=== PATIENT | male | born 1960 | race Caucasian/White ===

== ENCOUNTER → 2020-05-14 | Outpatient (CLI) | payer OTHER ==
[~2020-05-14] VITALS: Ht 187 cm; Wt 96.8 kg
[~2020-05-14] MED LIST: ASPI-999 PO; FINA5TAB6 PO; MULT-1136 PO; TMSL.4C PO; VITA1CAP PO; VITA400T7 PO
== END | disposition home or self-care (01) ==
LOC: PREOP 05:52
PROVIDERS: ATTEND Surgery
DX: Z01.818 Encounter for other preprocedural examination (principal)

== ENCOUNTER 2020-05-28 09:50 | Day surgery (SDC) | payer BC, OTHER ==
[~2020-05-28] VITALS: Ht 187 cm; Wt 96.8 kg
[2020-05-28] MEDS ORDERED: LACTATED RINGERS 1,000 ML IV ONE (09:59)
[2020-05-28 10:00] VITALS: BP 141/102
[2020-05-28] MEDS ORDERED: LACTATED RINGERS 1,000 ML IV STA (10:16)
[2020-05-28] MEDS ORDERED: PROPOFOL INJECTION 50 ML IV ONE ×2 (10:17→10:54)
[2020-05-28] MEDS ORDERED: MIDAZOLAM 2 MG/2 ML (VERSED) VIAL ONE (10:18)
[2020-05-28 11:17] VITALS: BP 106/70
--- NOTE | 2020-05-28 11:20 | Progress Note-Post Operative ---
Post-Operative Progess Note Surgeon (s)/General Expeditor (s) Surgeon QUENTIN SETH DO General Expeditor: DAXA Martinez Pre-Operative Diagnosis screening Post-Operative Diagnosis Polyp diverticula int hemorrhoids Procedure & Operative Findings Date of Procedure 05/28/20 Procedure Performed/Findings Colon with cold bx Anesthesia Type IV sedation by MEDICAID COLLECTION SPECIALIST Estimated Blood Loss Estimated blood loss (mL): scant Specimens/Packing Specimens Removed rectal polyp QUENTIN SETH DO May 28, 2020 11:20
--- NOTE | 2020-05-28 11:21 | Endoscopy Discharge Instruct ---
Endo Procedure/Findings Findings 1.: Polyp 2.: Diverticulosis 3.: Internal Hemorrhoids Discharge Instructions - Activity: You might feel a little sleepy until tomorrow. This is due to the medicine you received to relax you. Until tomorrow, you should: NOT drive a car, operate machinery or power tools. NOT drink any alcoholic beverages. NOT make any important decisions or sign importortant papers. Do not return to work until tomorrow, unless otherwise instructed. Resume previous activities tomorrow. Diet: Start by taking liquids. If you tolerate liquids, advance to solid food. 1.: Colonscopy in 10 years Notify Physician - If you experience excessive bleeding, unusual abdominal pain, fever, or chest pain, contact your doctor immediately. QUENTIN SETH DO May 28, 2020 11:21
[2020-05-28 11:22] VITALS: BP 113/74
[2020-05-28 11:25] VITALS: BP 113/74
--- NOTE | 2020-05-28 11:48 | Anesthesia-General Post-Op ---
MAC Patient Condition Mental Status/LOC: Same as Preop Cardiovascular: Satisfactory Nausea/Vomiting: Absent Respiratory: Satisfactory Pain: Controlled Complications: Absent Post Op Complications Complications None Follow Up Care/Instructions Patient Instructions None needed. Anesthesiology Discharge Order Discharge Order Patient is doing well, no complaints, stable vital signs, no apparent adverse anesthesia problems. No complications reported per nursing. MIRTA PATTERSON CHARTER PILOT May 28, 2020 11:48
[2020-05-28 11:55] VITALS: BP 141/107
[2020-05-28 12:15] VITALS: BP 141/107
--- NOTE | 2020-05-29 01:49 | OPERATIVE REPORT ---
DATE OF SERVICE: 05/28/2020 PREOPERATIVE DIAGNOSIS: Screening colonoscopy. POSTOPERATIVE DIAGNOSES: Colon polyp, diverticula, internal hemorrhoids. PROCEDURE: Colonoscopy with cold biopsy. SURGEON: Ramses Kumari DO PROCTOLOGIST: Tad Gilliland MS3 ANESTHESIA: IV sedation by the PUBLIC ADMINISTRATION PROFESSOR. SPECIMEN: Rectal polyp. BLOOD LOSS: Scant. FLUIDS: Per anesthesia. POSTOPERATIVE CONDITION: Stable. INDICATION FOR PROCEDURE: The patient is a 60-year-old male who needed a screening colonoscopy. FINDINGS: The patient had one small polyp in the rectum. He had the beginnings of diverticula and some very small internal hemorrhoids. PROCEDURE NOTE: After informed consent was obtained, the patient was brought to the endoscopy suite, placed in bed in left lateral decubitus position. He was administered IV sedation by the PUBLIC ADMINISTRATION PROFESSOR who then monitored his vitals the entire time, heart rate, blood pressure and pulse ox. Scope was inserted, pushed all the way about 150 cm, even all the way to cecum, took a picture of appendiceal orifice, noted the ileocecal valve and able to get into the terminal ileum, took a picture and then slowly withdrew the scope insufflating to look circumferential tesfaye, looking the cecum, up the ascending colon to the hepatic flexure, then down the transverse colon, the splenic flexure, into the descending colon down in the sigmoid. In the sigmoid, saw the beginnings of diverticula, took a picture, continued down into the rectum. In the rectum, saw small polyp, a flat polyp. I elected to do a cold biopsy of this and then retroflexed the scope in the rectal vault, saw some minimal internal hemorrhoids, took a picture and then removed the scope. The patient tolerated the procedure. He was recovered in endoscopy suite. Job ID: [id number] DocumentID: [id number] Dictated Date: 05/28/2020 15:38:26 Laser Systems Engineer Date: 05/29/2020 01:48:59 Dictated By: RAMSES KUMARI DO MTDD
== END 2020-05-28 12:15 | disposition home or self-care (01) ==
LOC: ENDO 09:50
PROVIDERS: ATTEND Surgery
DX: Z12.11 Encounter for screening for malignant neoplasm of colon (principal); K62.1 Rectal polyp; K57.30 Diverticulosis of large intestine without perforation or abscess without bleeding; K64.8 Other hemorrhoids; M54.9 Dorsalgia, unspecified; M06.9 Rheumatoid arthritis, unspecified; D68.52 Prothrombin gene mutation; Z79.82 Long term (current) use of aspirin; Z91.041 Radiographic dye allergy status; Z79.899 Other long term (current) drug therapy
CPT/HCPCS: 88305

== ENCOUNTER → 2022-07-11 | Outpatient (CLI) | payer BC ==
--- NOTE | 2022-07-11 16:38 | Diagnostic Imaging Report ---
EXAMINATION: Chest 2 view HISTORY: CHEST WALL PAIN COMPARISON: None available. FINDINGS: Heart size and pulmonary vasculature are normal. The lungs are clear without consolidation, pleural effusion, or pneumothorax. The osseous structures are intact. IMPRESSION: 1. No acute radiographic abnormality in the chest. Dictated by: Dictated on workstation # [id number]
== END ==
LOC: RAD FS 11:55
PROVIDERS: ATTEND Family Medicine
DX: R07.89 Other chest pain (principal)
CPT/HCPCS: 71046